=== PATIENT | male | born 1990 | race Caucasian/White ===

== ENCOUNTER 2019-10-21 02:34 | Emergency (ER) | payer OTHER ==
[2019-10-21 03:07] LABS: #Eosinphils 0.1 thou/uL (0.0-0.7); #Lymphocytes 3.1 thou/uL (1.20-3.40); #Monocytes 0.5 thou/uL (0.11-0.59); #Neutrophils 2.6 thou/uL (1.40-6.50); %Basophils 0.5 % (0.0-1.0); %Eosinophils 2.2 % (0.0-10.0); %Lymphocytes 48.5 % (21.0-51.0); %Monocytes 8.4 % (0.0-10.0); %Neutrophils 40.4 % (42.0-75.0); Hemoglobin 17.4 g/dL (14.0-18.0); Mean Corpuscular HGB CONC 36.3 g/dL (32.0-36.0); Mean Corpuscular Hemoglobin 32.5 pg (27.0-31.0); Mean Corpuscular Volume 89.6 fL (78.0-98.0); Mean Platelet Volume 8.7 fL (7.4-10.4); Platelet Count 188 thou/uL (130-400); RBC Distribution Width 11.6 % (11.5-14.5); Red Blood Cell (RBC) Count 5.34 mill/uL (4.70-6.10); White Blood Cell (WBC) Count 6.4 thou/uL (4.8-10.8)
[2019-10-21 03:22] LABS: ALT (SGPT) 100 U/L (8-55); AST (SGOT) 39 U/L (5-34); Albumin 4.9 g/dL (3.5-5.0); Alkaline Phosphatase 78 U/L (40-110); Anion Gap 11 mmol/L (10-20); BUN (Urea Nitrogen) 10 mg/dL (8.9-20.6); Bilirubin, Total 0.7 mg/dL (0.2-1.2); Calc. Creatinine Clearance 0 mL/min (70-130); Calcium 9.4 mg/dL (7.8-10.44); Carbon Dioxide 27 mmol/L (22-29); Chloride 105 mmol/L (98-107); Estimated GFR-MDRD 84; Globulin 2.6 g/dL (2.4-3.5); Glucose 95 mg/dL (70-105); Magnesium 1.9 mg/dL (1.6-2.6); Potassium 3.9 mmol/L (3.5-5.1); Protein, Total 7.5 g/dL (6.0-8.3); Sodium 139 mmol/L (136-145)
[2019-10-21 05:55] LABS: Troponin I Less than 0.010 ng/mL (< 0.028)
--- NOTE | 2019-10-21 07:53 | RAD ---
CHEST 1 VIEW: INDICATION: Chest pain. COMPARISON: None. FINDINGS: There are midline sternotomy changes. There is mild cardiomegaly. Pulmonary vasculature is normal-a ppearing. No pleural effusion or pneumothorax is evident. No acute osseous abnormality is evident. IMPRESSION: Mild cardiomegaly. POS: BH
== END 2019-10-21 06:42 | disposition home or self-care (01) ==
LOC: ERS 02:34
DX: R00.2 Palpitations (principal); R07.9 Chest pain, unspecified; F41.9 Anxiety disorder, unspecified; Z87.891 Personal history of nicotine dependence; Z79.899 Other long term (current) drug therapy; Z79.82 Long term (current) use of aspirin
CPT/HCPCS: 36415; 71045; 80053; 83735; 84484; 85025; 93005; 94760